=== PATIENT | male | born 1980 | race Caucasian/White ===

== ENCOUNTER 2017-06-23 18:32 | Inpatient (IN) ==
[2017-06-23] MEDS ORDERED: *HR* Midazolam HCl 2 MG/2 ML VIAL IVP ONE (18:48)
[2017-06-23] MEDS ORDERED: Ziprasidone 20 MG CAPSULE PO STA (18:48)
--- NOTE | 2017-06-23 18:56 | Emergency Department Note ---
Disposition Clinical Impression: Acute psychosis, Suicidal ideation, Chronic schizophrenia Disposition: Admitted As Inpatient Condition: Good Forms: ED Satisfaction Letter Time of Disposition: 20:58 Psych HPI - General Chief Complaint: ED Psychiatric Symptoms Stated Complaint: SI/HI Time Seen by Provider: 06/23/17 18:38 Source: patient Mode of arrival: ambulatory Limitations: no limitations Nursing Notes Reviewed: Yes Vital Signs Reviewed: Yes - History of Present Illness HPI Narrative: Patient has a history of schizophrenia is on lithium, amongst other medications presenting with suicidal ideation. He has had previous psychiatric admissions. States she feels like she wants to kill himself. States he was cutting his wrists today to release tension. No suicide attempt. Is having auditory and visual hallucinations, which makes him angry. Has been taking all his medications as prescribed. Denies any pain. States that he really just needs to get checked out. - Related Data Allergies Allergy/AdvReac Type Severity Reaction Status Date / Time No Known Allergies Allergy Verified 06/23/17 18:47 All systems ED: reviewed and negative except as stated. Psychiatric: Reports: depression, suicidal thoughts, auditory hallucinations, visual hallucinations Past Medical History - Past Medical History Attestation: Yes The following information was validated with the patient. Source: patient Medical history: Reports: diabetes, GERD, hypertension Psychiatric history: Reports: anxiety, depression, panic disorder, schizophrenia , previous psychiatric hospitalization - Social History Smoking Status: Current every day smoker Smokeless Tobacco Status: No Alcohol use: Reports: heavy Drug use: Reports: none Physical Exam - General Limitations: no limitations General appearance: alert, in no apparent distress - Head Head exam: atraumatic, normocephalic, normal inspection - Respiratory Respiratory exam: Present: normal lung sounds bilaterally - Cardiovascular Cardiovascular exam: Present: regular rate, normal rhythm, normal heart sounds - Abdominal Exam Abdominal exam: Present: soft, Non-Tender. Absent: tenderness, distention, guarding, rebound, rigidity - Extremities Exam Extremities exam: Present: other (Superficial abrasions to the left wrist, no bleeding) - Neurological Exam Neurological exam: Present: alert, oriented X3 - Psychiatric Psychiatric exam: Present: flat affect, suicidal ideation - Skin Skin exam: Present: warm, dry, intact, normal color Course Course Narrative: Med clearance and psych consult, likely admission - Reevaluation(s) Reevaluation #1: Patient to be admitted from Vital Signs Temperature 98.2 F 06/23/17 18:39 Pulse Rate 78 06/23/17 18:39 Respiratory Rate 22 06/23/17 18:39 Blood Pressure 149/88 06/23/17 18:39 O2 Sat by Pulse Oximetry 99 06/23/17 18:39 Temperature 98.2 F 06/23/17 18:39 Pulse Rate 78 06/23/17 18:39 Respiratory Rate 22 06/23/17 18:39 Blood Pressure 149/88 06/23/17 18:39 O2 Sat by Pulse Oximetry 99 06/23/17 18:39 Oxygen Delivery Oxygen Delivery Room Air Psych - Lab Data Result diagrams: 06/23/17 18:57 06/23/17 18:57 Lab Results 06/23/17 06/23/17 06/23/17 Range/Units 18:50 18:50 18:57 WBC 10.0 (4.3-11.1) K/mcL RBC 5.35 (4.19-5.50) M/mcL Hgb 14.7 (12.9-16.9) g/dL Hct 45.6 (37.5-50.1) % MCV 85.2 (83.0-100.0) fL MCH 27.5 L (28.0-33.3) pg MCHC 32.2 (31.6-35.5) g/dL RDW 14.6 H (11.5-14.5) % Plt Count 235 (140-400) K/mcL MPV 10.5 (9.4-12.4) fL Immature Gran % 0.7 (0-4) % Seg Neutrophils % 70.1 % Lymphocytes % 19.7 % Monocytes % 5.5 % Eosinophils % 3.5 % Basophils % 0.5 % Neutrophils # 7.0 (1.6-8.9) K/mcL Lymphocytes # 2.0 (0.6-4.6) K/mcL Monocytes # 0.6 (0.0-1.3) K/mcL Eosinophils # 0.4 (0.0-0.6) K/mcL Basophils # 0.1 (0.0-0.2) K/mcL Sodium (136-145) mEq/L Potassium (3.5-4.5) mEq/L Chloride (98-109) mEq/L Carbon Dioxide (19-29) mEq/L BUN (8-26) mg/dL Creatinine (0.72-1.25) mg/dL Est GFR ( Amer) (> 60) Est GFR (Non-Af Amer) (> 60) BUN/Creatinine Ratio (6-26) Glucose (70-99) mg/dL Calculated Osmolality (280-300) Calcium (8.6-10.8) mg/dL Urine Color Yellow (Yellow) Urine Clarity Clear (Clear) Urine pH 6.0 (5.0-8.0) pH Units Ur Specific [place] 1.021 (1.010-1.025) Urine Protein Negative (Neg-Trace) mg/dL Urine Glucose (UA) Normal (Normal) mg/dL Urine Ketones Negative (Negative) mg/dL Urine Blood Negative (Negative) Urine Nitrite Negative (Negative) Urine Bilirubin Negative (Negative) Urine Urobilinogen Normal (Normal) mg/dL Ur Leukocyte Esterase Negative (Negative) Salicylates (15-30) mg/dL Urine Opiates Screen Negative (Mmmbfb=735) ng/mL Acetaminophen (10-30) mcg/mL Ur Barbiturates Screen Negative (Unaufb=362) ng/mL Ur Phencyclidine Scrn Negative (Cutoff=25) ng/mL Ur Amphetamines Screen Negative (Ngkbbk=9453) ng/mL U Benzodiazepines Scrn Negative (Mckpah=495) ng/mL [place] (0.6-1.2) mEq/L Urine Cocaine Screen Negative (Cutoff= 300) ng/mL U Marijuana (THC) Screen Negative (Cutoff = 50) ng/mL Ethyl Alcohol (0-10) mg/dL 06/23/17 06/23/17 Range/Units 18:57 18:57 WBC (4.3-11.1) K/mcL RBC (4.19-5.50) M/mcL Hgb (12.9-16.9) g/dL Hct (37.5-50.1) % MCV (83.0-100.0) fL MCH (28.0-33.3) pg MCHC (31.6-35.5) g/dL RDW (11.5-14.5) % Plt Count (140-400) K/mcL MPV (9.4-12.4) fL Immature Gran % (0-4) % Seg Neutrophils % % Lymphocytes % % Monocytes % % Eosinophils % % Basophils % % Neutrophils # (1.6-8.9) K/mcL Lymphocytes # (0.6-4.6) K/mcL Monocytes # (0.0-1.3) K/mcL Eosinophils # (0.0-0.6) K/mcL Basophils # (0.0-0.2) K/mcL Sodium 139 (136-145) mEq/L Potassium 4.1 (3.5-4.5) mEq/L Chloride 103 (98-109) mEq/L Carbon Dioxide 26 (19-29) mEq/L BUN 12 (8-26) mg/dL Creatinine 0.92 (0.72-1.25) mg/dL Est GFR ( Amer) > 60 (> 60) Est GFR (Non-Af Amer) > 60 (> 60) BUN/Creatinine Ratio 13 (6-26) Glucose 137 H (70-99) mg/dL Calculated Osmolality 290 (280-300) Calcium 10.2 (8.6-10.8) mg/dL Urine Color (Yellow) Urine Clarity (Clear) Urine pH (5.0-8.0) pH Units Ur Specific [place] (1.010-1.025) Urine Protein (Neg-Trace) mg/dL Urine Glucose (UA) (Normal) mg/dL Urine Ketones (Negative) mg/dL Urine Blood (Negative) Urine Nitrite (Negative) Urine Bilirubin (Negative) Urine Urobilinogen (Normal) mg/dL Ur Leukocyte Esterase (Negative) Salicylates < 5.0 L (15-30) mg/dL Urine Opiates Screen (Zmqgqb=831) ng/mL Acetaminophen < 1.0 L (10-30) mcg/mL Ur Barbiturates Screen (Lagmfb=401) ng/mL Ur Phencyclidine Scrn (Cutoff=25) ng/mL Ur Amphetamines Screen (Bigrym=2660) ng/mL U Benzodiazepines Scrn (Dazhow=760) ng/mL [place] 0.3 L (0.6-1.2) mEq/L Urine Cocaine Screen (Cutoff= 300) ng/mL U Marijuana (THC) Screen (Cutoff = 50) ng/mL Ethyl Alcohol < 10 (0-10) mg/dL Psychiatric Medical Clearance - Medical Clearance Checklist Medical History: No Social History Section defined Current Vitals: Last Vital Signs Temp 98.2 F 06/23/17 18:39 Pulse 78 06/23/17 18:39 Resp 22 06/23/17 18:39 BP 149/88 06/23/17 18:39 Pulse Ox 99 06/23/17 18:39 Psychiatric Lab Panel: Drug Levels and Toxicity 06/23/17 06/23/17 06/23/17 18:50 18:57 18:57 Urine Opiates Screen Negative Acetaminophen < 1.0 L Ur Barbiturates Screen Negative Ur Phencyclidine Scrn Negative Ur Amphetamines Screen Negative U Benzodiazepines Scrn Negative [place] 0.3 L Urine Cocaine Screen Negative U Marijuana (THC) Screen Negative Ethyl Alcohol < 10 Abnormal Labs: Abnormal lab results MCH 27.5 pg (28.0-33.3) L 06/23/17 18:57 RDW 14.6 % (11.5-14.5) H 06/23/17 18:57 Glucose 137 mg/dL (70-99) H 06/23/17 18:57 Salicylates < 5.0 mg/dL (15-30) L 06/23/17 18:57 Acetaminophen < 1.0 mcg/mL (10-30) L 06/23/17 18:57 [place] 0.3 mEq/L (0.6-1.2) L 06/23/17 18:57 Statement of Medical Clearance: I have evaluated the patient, reviewed diagnostic information, and certify that the patient's medical condition is sufficiently stable that transfer to the psychiatric unit does not pose a significant risk of deterioration.
--- NOTE | 2017-06-23 18:58 | Emergency Department Note ---
START Narrative - START START: I examined this patient and my medical decision-making was reviewed with the [employer]/PA/Advanced Practice Nurse/Resident Physician. I agree with the documented findings, disposition and treatment plan as described except to the extent set forth below. ED attending note: Patient seen with emergency medicine resident Dr. SELLERS. We independently evaluated the patient. We independently had [id number] contact with the patient. Please see a copy of his note for details of the history and physical, evaluation, management and disposition of this emergency Department patient. Briefly: A 36-year-old male with history of schizophrenia complains of homicidal and suicidal ideations. He was pink slipped. He is with his mother. Patient is going to be given oral Geodon and Benadryl for set. Patient will be medically cleared and then be seen by mental health services. Disposition pending.
[2017-06-23 19:05] LABS: Basophils # 0.1 K/mcL (0.0-0.2); Basophils % 0.5 %; Eosinophils # 0.4 K/mcL (0.0-0.6); Eosinophils % 3.5 %; Hematocrit 45.6 % (37.5-50.1); Hemoglobin 14.7 g/dL (12.9-16.9); Immature Granulocytes % 0.7 % (0-4); Lymphocytes % 19.7 %; Mean Corpuscular HGB Conc 32.2 g/dL (31.6-35.5); Mean Corpuscular Hemoglobin 27.5 pg (28.0-33.3); Mean Corpuscular Volume 85.2 fL (83.0-100.0); Mean Platelet Volume 10.5 fL (9.4-12.4); Monocytes # 0.6 K/mcL (0.0-1.3); Monocytes % 5.5 %; Platelet Count 235 K/mcL (140-400); Red Blood Count 5.35 M/mcL (4.19-5.50); Red Cell Distribution Width 14.6 % (11.5-14.5); Segmented Neutrophils % 70.1 %
[2017-06-23 19:11] LABS: Bilirubin,Urine Negative (Negative); Blood,Urine Negative (Negative); Clarity,Urine Clear (Clear); Color,Urine Yellow (Yellow); Glucose,Urine (UA) Normal (Normal); Ketones,Urine Negative (Negative); Leukocyte Esterase,Urine Negative (Negative); Nitrite,Urine Negative (Negative); Protein,Urine Negative (Neg-Trace); Specific Gravity,Urine 1.021 (1.010-1.025); Urobilinogen,Urine Normal (Normal)
[2017-06-23 19:18] LABS: Amphetamine Screen,Urine Negative ng/mL (Cutoff=1000); Barbiturate Screen,Urine Negative ng/mL (Cutoff=200); Benzodiazepines Screen,Urine Negative ng/mL (Cutoff=200); Cannabinoid Screen,Urine Negative ng/mL (Cutoff = 50); Cocaine Screen,Urine Negative ng/mL (Cutoff= 300); Opiate Screen,Urine Negative ng/mL (Cutoff=300); Phencyclidine Screen,Urine Negative ng/mL (Cutoff=25)
[2017-06-23 19:21] LABS: BUN/Creatinine Ratio 13 (6-26); Blood Urea Nitrogen 12 mg/dL (8-26); Calcium 10.2 mg/dL (8.6-10.8); Carbon Dioxide 26 mEq/L (19-29); Chloride 103 mEq/L (98-109); Glucose 137 mg/dL (70-99); Osmolality,Calculated 290 (280-300); Potassium 4.1 mEq/L (3.5-4.5); Sodium 139 mEq/L (136-145); eGFR For African Americans > 60 (> 60); eGFR For Non-African Americans > 60 (> 60)
[2017-06-23 19:22] LABS: Acetaminophen < 1.0 mcg/mL (10-30); Ethanol < 10 mg/dL (0-10); Salicylate < 5.0 mg/dL (15-30)
[2017-06-23] MEDS ORDERED: Lithium Carbonate 300 MG CAPSULE PO STA (19:24)
[2017-06-23] MEDS ORDERED: Ibuprofen 400 MG TABLET PO PRN (22:19)
[2017-06-23] MEDS ORDERED: traZODone 50 MG TABLET PO PRN (22:19)
[2017-06-23] MEDS ORDERED: *HR* LORazepam 1 MG TABLET PO PRN (22:19)
[2017-06-23] MEDS ORDERED: hydrOXYzine pamoate 25 MG CAPSULE PO PRN (22:19)
[2017-06-23] MEDS ORDERED: Haloperidol Lactate 5 MG/ML VIAL IM PRN (22:19)
[2017-06-23] MEDS ORDERED: Mag Hydrox/Al Hydrox/Simeth 30 ML UDC PO PRN (22:19)
[2017-06-23] MEDS ORDERED: MOM Conc 10 ML UD.LIQ PO PRN (22:19)
[2017-06-23] MEDS ORDERED: *HR* LORazepam 2 MG/ML VIAL IM PRN (22:19)
[2017-06-23] MEDS ORDERED: OLANZapine 5 MG TAB.RAPDIS PO ONE (22:26)
[2017-06-24] MEDS: Sucralfate 1 GM TABLET PO SCH ×5 (00:02→19:59)
[2017-06-24] MEDS: hydrOXYzine pamoate 25 MG CAPSULE PO SCH ×3 (00:02→19:59)
[2017-06-24] MEDS: hydroCHLOROthiazide 25 MG TABLET PO SCH (09:01)
[2017-06-24] MEDS: Lithium Carbonate 300 MG CAPSULE PO SCH (09:01)
[2017-06-24] MEDS: lamoTRIgine 100 MG TABLET PO SCH ×2 (09:01→09:02)
[2017-06-24] MEDS: Aspirin Enteric Coated 81 MG Tablet PO SCH (09:01)
--- NOTE | 2017-06-24 10:30 | Psychiatry History & Physical ---
Date of Encounter: 06/24/17 Time of Encounter: 08:00 History of Present Illness Patient Stated Chief Complaint: "I wanted to ." Medicare Admission Attestation: For traditional Medicare patients the provided hospital inpatient services are reasonable and necessary and in the case of services not specified as inpatient -only under 42 CFR 419.22 (n), that they are appropriately provided as inpatient services in accordance 42 CFR 412.3. For Critical Access Hospital the patient may reasonably be expected to be discharged or transferred to a hospital within 96 hours after admission to the Critical Access Hospital. Admitted From: Emergency Dept Plans for Post Hospital Care: Home History of Present Illness: Mr. Hooks is a 36 year old male with a reported history of depression, schizoaffective disorder, bipolar disorder who presented to the ER with increasing depression, suicidal ideations and recent self-harm. Patient reports that he was feeling more depressed although he does not have a specific stressor in his life. He reports that he wanted to have an emotional release so he scratched himself with a dull knife. Patient reports that he would have cut deeper if he was able to." I just do not have any reason to live." Patient states that he has had multiple suicide attempts although none of them required serious medical attention. He also has multiple previous psychiatric admissions. Patient reports chronically depressed mood which has worsened over the past few days. He does report mood swings and irritability. Occasional difficulty sleeping. He denies illicit drug use but does drink about 20 cans of beer a day. He does not drink every day and states that he has never had an issue with withdrawal or withdrawal seizures in the past. Currently he endorses suicidal ideations without plan. He denies homicidal ideations. He does report chronic visual and auditory hallucinations. The visual hallucinations or various things like rats or pterodactyl's. The auditory hallucinations are more vague and patient is not able to verbalize exact phrases. Past Med Surg Social Fam HX - Past Medical History Medical history: diabetes, GERD, hypertension - Past Psychiatric History Psychiatric history: Reports: depression, prior suicide attempt, previous psychiatric hospitalization Past psychiatric history details: Patient has an unclear psychiatric history he reports multiple different psychiatric diagnoses. He does report medication compliance but his lithium level was low compared to his dosage of lithium. He goes to [facility] in [place]. Family psychiatric history: Yes Family Psychiatric History Details: Mom and several siblings have mental health issues. Family History of Suicide: Completed (Cousin completed) - Social History Smoking Status: Current every day smoker Smokeless Tobacco Status: No Alcohol use: heavy Drug use: none Occupational status: unemployed, disabled Current living situation: With Family Medications & Allergies Aspirin Enteric Coated [Aspirin EC] 81 mg PO DAILY 06/23/17 [History] Gemfibrozil [Lopid] 600 mg PO BIDWM 06/23/17 [History] Lisinopril [Zestril] 5 mg PO DAILY 06/23/17 [History] [place] Carbonate 300 mg PO QAM 06/23/17 [History] [place] Carbonate 600 mg PO HS 06/23/17 [History] Lurasidone [Latuda] 40 mg PO DAILY 06/23/17 [History] Meloxicam [Meloxicam] 7.5 mg PO BID 06/23/17 [History] Montelukast [Singulair] 10 mg PO DAILY 06/23/17 [History] Pantoprazole Sodium [Protonix] 40 mg PO DAILY 06/23/17 [History] Propranolol HCl 40 mg PO BID 06/23/17 [History] Sucralfate [Carafate] 1 gm PO QID 06/23/17 [History] Tamsulosin [Flomax] 0.4 mg PO DAILY 06/23/17 [History] diazePAM [Valium] 10 mg PO BID 06/23/17 [History] hydrOXYzine pamoate [HydrOXYzine Pamoate] 25 mg PO BID 06/23/17 [History] hydroCHLOROthiazide [Hydrochlorothiazide] 25 mg PO DAILY 06/23/17 [History] lamoTRIgine [Lamictal] 50 mg PO DAILY 06/23/17 [History] lamoTRIgine [Lamotrigine] 200 mg PO DAILY 06/23/17 [History] 3 Allergy/AdvReac Type Severity Reaction Status Date / Time No Known Allergies Allergy Verified 06/23/17 18:47 Review of Systems Constitutional: Denies: fever, chills, weakness, weight change Eyes: Denies: eye pain, vision change Ears, Nose, Throat: Denies: ear pain, throat pain, dental pain, hearing loss, congestion Cardiovascular: Denies: chest pain, palpitations, dyspnea on exertion Respiratory: Denies: cough, dyspnea, wheezes Gastrointestinal: Denies: abdominal pain, nausea, vomiting, diarrhea, constipation Genitourinary male: Denies: urgency, dysuria, frequency, genital lesions Genitourinary female: Denies: urgency, dysuria, frequency, abnormal menses, dyspareunia Musculoskeletal: Denies: joint swelling, joint pain Integumentary: Denies: rash, lesions, pruritus Neurological: Denies: headache, weakness, numbness, memory loss Psychiatric: Reports: depression, anxiety, suicidal ideation, auditory hallucinations, visual hallucinations, difficulty concentrating, hopelessness, irritability, mood swings. Denies: homicidal ideation Endocrine: Denies: fatigue, heat or cold intolerance Hematologic/Lymphatic: Denies: easy bruising, lymphadenopathy Allergic/Immunologic: Denies: urticaria, itchy eyes Mental Status Exam Patient orientation: Yes Person, Yes Time, Yes Place Level of alertness: Alert Patient appearance: Unkempt Behavior: calm Psychomotor activity: Slowed Eye contact: Minimal Contact Mood description: Depressed Affect description: blunted Speech pattern: Normal rate, Normal rhythm, Normal tone Speech volume: Normal Thought process: Intact, Linear Thought content: Yes Suicidal ideation Perceptual disturbances: No Reacting to internal stimuli, Yes Auditory hallucinations, Yes Visual hallucinations Attention span: Capable of Focused Attention Memory description: Grossly Intact Patient reliability: Questionable Historian Intelligence estimate: Average Judgment: Limited Insight: Minimal Exam - HEENT Head exam IM: Present: atraumatic Eye exam IM: Present: EOMI - Neurological Neurological exam IM: Present: CN II-XII intact - Extremities Extremities exam IM: Present: full ROM - Skin Skin exam IM: Present: dry, warm Results - Vital Signs Vital signs: Temp Pulse Resp BP Pulse Ox 97.4 F L 68 18 138/84 99 06/23/17 21:40 06/23/17 21:40 06/23/17 21:40 06/23/17 21:40 06/23/17 18:39 - Labs Labs: Laboratory Last Values WBC 10.0 K/mcL (4.3-11.1) 06/23/17 18:57 RBC 5.35 M/mcL (4.19-5.50) 06/23/17 18:57 Hgb 14.7 g/dL (12.9-16.9) 06/23/17 18:57 Hct 45.6 % (37.5-50.1) 06/23/17 18:57 MCV 85.2 fL (83.0-100.0) 06/23/17 18:57 MCH 27.5 pg (28.0-33.3) L 06/23/17 18:57 MCHC 32.2 g/dL (31.6-35.5) 06/23/17 18:57 RDW 14.6 % (11.5-14.5) H 06/23/17 18:57 Plt Count 235 K/mcL (140-400) 06/23/17 18:57 MPV 10.5 fL (9.4-12.4) 06/23/17 18:57 Immature Gran % 0.7 % (0-4) 06/23/17 18:57 Seg Neutrophils % 70.1 % 06/23/17 18:57 Lymphocytes % 19.7 % 06/23/17 18:57 Monocytes % 5.5 % 06/23/17 18:57 Eosinophils % 3.5 % 06/23/17 18:57 Basophils % 0.5 % 06/23/17 18:57 Neutrophils # 7.0 K/mcL (1.6-8.9) 06/23/17 18:57 Lymphocytes # 2.0 K/mcL (0.6-4.6) 06/23/17 18:57 Monocytes # 0.6 K/mcL (0.0-1.3) 06/23/17 18:57 Eosinophils # 0.4 K/mcL (0.0-0.6) 06/23/17 18:57 Basophils # 0.1 K/mcL (0.0-0.2) 06/23/17 18:57 Sodium 139 mEq/L (136-145) 06/23/17 18:57 Potassium 4.1 mEq/L (3.5-4.5) 06/23/17 18:57 Chloride 103 mEq/L (98-109) 06/23/17 18:57 Carbon Dioxide 26 mEq/L (19-29) 06/23/17 18:57 BUN 12 mg/dL (8-26) 06/23/17 18:57 Creatinine 0.92 mg/dL (0.72-1.25) 06/23/17 18:57 Est GFR ( Amer) > 60 (> 60) 06/23/17 18:57 Est GFR (Non-Af Amer) > 60 (> 60) 06/23/17 18:57 BUN/Creatinine Ratio 13 (6-26) 06/23/17 18:57 Glucose 137 mg/dL (70-99) H 06/23/17 18:57 Calculated Osmolality 290 (280-300) 06/23/17 18:57 Calcium 10.2 mg/dL (8.6-10.8) 06/23/17 18:57 Urine Color Yellow (Yellow) 06/23/17 18:50 Urine Clarity Clear (Clear) 06/23/17 18:50 Urine pH 6.0 pH Units (5.0-8.0) 06/23/17 18:50 Ur Specific [place] 1.021 (1.010-1.025) 06/23/17 18:50 Urine Protein Negative mg/dL (Neg-Trace) 06/23/17 18:50 Urine Glucose (UA) Normal mg/dL (Normal) 06/23/17 18:50 Urine Ketones Negative mg/dL (Negative) 06/23/17 18:50 Urine Blood Negative (Negative) 06/23/17 18:50 Urine Nitrite Negative (Negative) 06/23/17 18:50 Urine Bilirubin Negative (Negative) 06/23/17 18:50 Urine Urobilinogen Normal mg/dL (Normal) 06/23/17 18:50 Ur Leukocyte Esterase Negative (Negative) 06/23/17 18:50 Salicylates < 5.0 mg/dL (15-30) L 06/23/17 18:57 Urine Opiates Screen Negative ng/mL (Ttmkfb=269) 06/23/17 18:50 Acetaminophen < 1.0 mcg/mL (10-30) L 06/23/17 18:57 Ur Barbiturates Screen Negative ng/mL (Eqkopd=338) 06/23/17 18:50 Ur Phencyclidine Scrn Negative ng/mL (Cutoff=25) 06/23/17 18:50 Ur Amphetamines Screen Negative ng/mL (Ytunzp=3269) 06/23/17 18:50 U Benzodiazepines Scrn Negative ng/mL (Turtxv=966) 06/23/17 18:50 [place] 0.3 mEq/L (0.6-1.2) L 06/23/17 18:57 Urine Cocaine Screen Negative ng/mL (Cutoff= 300) 06/23/17 18:50 U Marijuana (THC) Screen Negative ng/mL (Cutoff = 50) 06/23/17 18:50 Ethyl Alcohol < 10 mg/dL (0-10) 06/23/17 18:57 Assessment and Plan (1) Bipolar disorder with depression Current visit: Yes Status: Acute Plan: Admit inpatient for safety and stabilization, Close observation, Suicide Precautions per unit protocol, Encourage participation in unit milieu, Group Therapy, Monitor sleep, Monitor appetite Additional Plan: We will admit to for psychiatric stabilization. Encourage positive coping strategies. Restart home meds and encourage medication compliance. Encourage group attendance. Suicide precautions. Risks, benefits, side effects, alternatives discussed w/pt: Yes Patient agreeable to treatment: Yes Plans for Post Hospital Care: Home Estimated Length of Stay (Days): 3 (2) Alcohol dependence Current visit: Yes Status: Acute Plan: Admit inpatient for safety and stabilization, Close observation, Suicide Precautions per unit protocol, Encourage participation in unit milieu, Group Therapy, Monitor sleep, Monitor appetite Additional Plan: Patient drinks heavily. Vital signs are stable at this time. Continue to monitor. Educated patient on the importance of discontinuing alcohol and the effect of alcohol on his mental health. Monitor for signs of withdrawal. Risks, benefits, side effects, alternatives discussed w/pt: Yes Patient agreeable to treatment: Yes Qualifiers: Substance use status: uncomplicated Qualified Code(s): F10.20 - Alcohol dependence, uncomplicated
[2017-06-24] MEDS: Nicotine 2 MG GUM BC PRN ×2 (11:30→17:18)
[2017-06-24] MEDS ORDERED: Lithium Carbonate 300 MG CAPSULE PO SCH (21:00)
[2017-06-25] MEDS: Nicotine 2 MG GUM BC PRN ×2 (08:38→12:12)
[2017-06-25] MEDS: lamoTRIgine 100 MG TABLET PO SCH ×2 (08:38→08:39)
[2017-06-25] MEDS: hydrOXYzine pamoate 25 MG CAPSULE PO SCH (08:40)
[2017-06-25] MEDS: Lithium Carbonate 300 MG CAPSULE PO SCH (08:40)
[2017-06-25] MEDS: Aspirin Enteric Coated 81 MG Tablet PO SCH (08:41)
[2017-06-25] MEDS: hydroCHLOROthiazide 25 MG TABLET PO SCH (08:41)
[2017-06-25] MEDS: Sucralfate 1 GM TABLET PO SCH ×2 (08:43→12:12)
[2017-06-25 10:04] VITALS: BP 166/94
--- NOTE | 2017-06-25 11:49 | Discharge Summary ---
Date of Encounter: 06/25/17 Time of Encounter: 11:20 Diagnosis - Discharge Diagnosis (1) Bipolar disorder with depression Priority: Primary Status: Acute (2) Alcohol dependence Priority: Secondary Status: Acute Qualifiers: Substance use status: uncomplicated Qualified Code(s): F10.20 - Alcohol dependence, uncomplicated Medications - Discharge Medications Aspirin Enteric Coated [Aspirin EC] 81 mg PO DAILY 06/23/17 [History] Gemfibrozil [Lopid] 600 mg PO BIDWM 06/23/17 [History] Lisinopril [Zestril] 5 mg PO DAILY 06/23/17 [History] [place] Carbonate 300 mg PO QAM 06/23/17 [History] [place] Carbonate 600 mg PO HS 06/23/17 [History] Lurasidone [Latuda] 40 mg PO DAILY 06/23/17 [History] Meloxicam [Meloxicam] 7.5 mg PO BID 06/23/17 [History] Montelukast [Singulair] 10 mg PO DAILY 06/23/17 [History] Pantoprazole Sodium [Protonix] 40 mg PO DAILY 06/23/17 [History] Propranolol HCl 40 mg PO BID 06/23/17 [History] Sucralfate [Carafate] 1 gm PO QID 06/23/17 [History] Tamsulosin [Flomax] 0.4 mg PO DAILY 06/23/17 [History] diazePAM [Valium] 10 mg PO BID 06/23/17 [History] hydrOXYzine pamoate [HydrOXYzine Pamoate] 25 mg PO BID 06/23/17 [History] hydroCHLOROthiazide [Hydrochlorothiazide] 25 mg PO DAILY 06/23/17 [History] lamoTRIgine [Lamictal] 50 mg PO DAILY 06/23/17 [History] lamoTRIgine [Lamotrigine] 200 mg PO DAILY 06/23/17 [History] 3 Allergy/AdvReac Type Severity Reaction Status Date / Time No Known Allergies Allergy Verified 06/23/17 18:47 Provider Date of admission: 06/23/17 21:13 Primary care physician: PCP NONE Discharging clinician: Gini Arroyo Assessment and Plan - Patient/Caregiver Discharge Instructions Activity: resume usual activities as tolerated Diet: regular diet - Follow up Plan Follow up with: Marychuy Tomlinson [facility] [Outside] (You will see Leticia Jeffers CNP, on at 8:00 AM for outpatient psychiatric assessment and medication management services.) Functional capacity at discharge: independent ambulation Overall status at discharge: Stable Disposition: Home, Self-Care Hospital Course Hospital course: Mr. Hooks is a 36 year old male with a history of bipolar disorder most recent episode depressed as well as anxiety who presented to the hospital after making superficial cuts to his wrist. Patient reported that he felt like he did not want to live anymore. He was admitted to for psychiatric stabilization. Patient was incorporated into the therapeutic milieu and offer group and individual as well as recreational therapy. He was also offered psychoeducational materials and supportive therapy. He was placed on suicide precautions and close observation per unit protocol. Patient was restarted on his home medications. He reported compliance with meds but his lithium level was low. Patient does follow up with an outpatient provider regularly. He feels his mom is supportive. Throughout the course of the hospital stay patient states his mood improved. He states he became depressed because a lot of his friends and family have significant others that he does not have a girlfriend. He felt hopeless about this. Now he realizes he has a lot of family members including nieces and nephews that he wants to live for. Overall he feels much more hopeful for the future. Staff did speak to his mom who feels he is doing better and is willing to have him come home. He has been following up regularly at [facility]. He is willing to continue current meds as provided until his next appointment. He is discharged in stable condition. - Time Spent with Patient Total time spent providing and/or coordinating discharge services: Less than 30 minutes Quality - Multiple Antipsychotics Patient discharged on 2 or more antipsychotic medications: No Procedures - Procedures Procedures: Medication Management, Crisis Stabilization, Supportive Therapy, Group Therapy, Psychoeducational Therapy Mental Status Exam - Mental Status Exam Patient orientation: Yes Person, Yes Time, Yes Place Level of alertness: Alert Patient appearance: Appropriate Behavior: calm, cooperative Psychomotor activity: Normal Eye contact: Maintains Eye Contact Mood description: Euthymic/stable Affect description: congruent with mood, full range Speech pattern: Normal rate, Normal rhythm, Normal tone Speech Volume: Normal Thought process: Linear, Goal Oriented Thought Content: No Suicidal ideation, No Homicidal ideation, No Overt delusions Perceptual Disturbances: No Auditory hallucinations, No Visual hallucinations Judgment: Limited Insight: Partial
== END 2017-06-25 13:45 | disposition home or self-care (01) | DRG 885 ==
LOC: EMEROO 18:32 → 1ANU 21:13
PROVIDERS: ADMIT Student in an Organized Health Care Education/Training Program; ATTEND Student in an Organized Health Care Education/Training Program